=== PATIENT | male | born 1990 | race Caucasian/White ===

== ENCOUNTER 2016-08-14 23:18 | Emergency (ER) | payer OTHER ==
[~2016-08-14 23:18] MED LIST: DEPL PO; ENALAPRIL5 MG PO; LAMOTRIGINE200 MG PO; LEVOTHYROXIN0.088 MG GT; PULMICORT0.5 MG/21 IH; RISPERDAL M-TA0.5 MG PO; TOPIRAMATE50 MG PO
[2016-08-15 02:07] LABS: PLATELET COUNT 143 x10^3mcL (130-400); RED CELL DISTRIBUTION WIDTH 11.2 % (11.5-14.5)
[2016-08-15 02:54] LABS: CALCIUM 8.6 mg/dL (8.5-10.1); CARBON DIOXIDE 29.3 mmol/L (21-32); CHLORIDE SERUM 101 mmol/L (98-107); CREATININE SERUM 0.6 mg/dL (0.7-1.3); GFR1 > 60 mL/min; GLUCOSE SERUM 110 mg/dL (74-106); SODIUM SERUM 136 mmol/L (136-145)
[2016-08-15 02:58] LABS: ALKALINE PHOSPHATASE 115 U/L (46-116); ALT/SGPT 84 U/L (16-63); AST/SGOT 45 U/L (15-37); BILIRUBIN TOTAL 0.32 mg/dL (0.20-1.00); TOTAL PROTEIN, SERUM 7.5 g/dL (6.4-8.2)
[2016-08-15 02:59] LABS: ALBUMIN 3.3 g/dL (3.4-5.0)
[2016-08-15 03:33] VITALS: BP 88/64
== END 2016-08-15 03:33 | disposition home or self-care (01) ==
LOC: ED 23:18
PROVIDERS: Emergency Medicine
DX: R19.7 Diarrhea, unspecified (principal); R53.1 Weakness; R11.10 Vomiting, unspecified

== ENCOUNTER 2016-11-19 02:07 | Emergency (ER) | payer OTHER ==
[2016-11-19 04:01] VITALS: BP 120/57
== END 2016-11-19 04:01 | disposition left against medical advice (07) ==
LOC: ED 02:07
DX: Z53.21 Procedure and treatment not carried out due to patient leaving prior to being seen by health care provider (principal)

== ENCOUNTER 2018-06-05 19:22 | Inpatient (IN) | payer OTHER ==
[~2018-06-05] VITALS: Ht 154.9 cm; Wt 52.2 kg
[~2018-06-05 19:22] MED LIST changes: +LAMICTAL200 MG PO; -LAMOTRIGINE200 MG PO; -LEVOTHYROXIN0.088 MG GT; -RISPERDAL M-TA0.5 MG PO; +RISPERIDONE; +SYNTHROID0.088 MG; +TOPIRAMATE100 M1 GT; -TOPIRAMATE50 MG PO; +[UNRECOGNIZED DRUG - OTHER]
[2018-06-05 19:56] VITALS: Ht 154.9 cm; Wt 52.2 kg
--- NOTE | 2018-06-05 20:27 | NUR ---
PT CAME IN TODAY WITH FATHER WITH C/O DIARRHEA THAT STATED TODAY, PT HAS FEVER BUT FATHER STATES THAT PT DID NOT HAVE A FEVER AT HOME. FATHER STATES THAT YESTERDAY THE PT WAS SLEEPING MORE THAN NORMAL. PT HAS HISTORY OF MENTAL DELAY AND GASTRIC TUBE.
[2018-06-05 21:35] LABS: microscopic required? NO
[2018-06-05 21:41] LABS: urine erythrocyte NEGATIVE (NEGATIVE)
[2018-06-05 22:56] LABS: BASOPHIL % 0.1 % (0-2); PLATELET COUNT 165 x10^3mcL (130-400)
[2018-06-05 22:57] LABS: CALCIUM 7.6 mg/dL (8.5-10.1); CARBON DIOXIDE 24.9 mmol/L (21-32); CHLORIDE SERUM 102 mmol/L (98-107); CREATININE SERUM 0.8 mg/dL (0.7-1.3); GFR1 > 60 mL/min; GLUCOSE SERUM 111 mg/dL (74-106); POTASSIUM SERUM 3.7 mmol/L (3.5-5.1); RED CELL DISTRIBUTION WIDTH 11.1 % (11.5-14.5); SODIUM SERUM 135 mmol/L (136-145)
[2018-06-05 23:02] LABS: ALKALINE PHOSPHATASE 92 U/L (46-116); ALT/SGPT 52 U/L (16-63); AST/SGOT 29 U/L (15-37); BILIRUBIN TOTAL 0.47 mg/dL (0.20-1.00); TOTAL PROTEIN, SERUM 7.5 g/dL (6.4-8.2)
[2018-06-05 23:03] LABS: ALBUMIN 3.3 g/dL (3.4-5.0)
[2018-06-06] MEDS ORDERED: PANTOPRAZOLE SO40 M1 GT (00:41)
[2018-06-06 04:19] LABS: MAGNESIUM 2.2 mg/dL (1.8-2.4); PHOSPHOROUS 2.8 mg/dL (2.5-4.9)
[2018-06-06 04:23] LABS: AMPHETAMINE QUAL UR NONE DETECTED (See below)
[2018-06-06 04:25] LABS: CHOLESTEROL/HDL RATIO 2.6
[2018-06-06 07:48] LABS: CALCIUM 8.1 mg/dL (8.5-10.1); CARBON DIOXIDE 23.5 mmol/L (21-32); CHLORIDE SERUM 101 mmol/L (98-107); CREATININE SERUM 0.8 mg/dL (0.7-1.3); GFR1 > 60 mL/min; GLUCOSE SERUM 116 mg/dL (74-106); MAGNESIUM 1.9 mg/dL (1.8-2.4); PHOSPHOROUS 2.4 mg/dL (2.5-4.9); POTASSIUM SERUM 3.3 mmol/L (3.5-5.1); SODIUM SERUM 136 mmol/L (136-145)
--- NOTE | 2018-06-06 08:08 | NUR ---
RECEIVED PATIENT FROM ER. FATHER AT BED SIDE. PATIENT HAS DEVELOPMENT DELAY AND HX OF SEIZURE. SZ PRECAUTION IN PLACE. PATIENT NONVERBRAL, BUT ORIENTED TO FAMILY MEMBERS. PER FATER - PATIENT HAS FEVER, NAUSEA, VOMITING AND DIARRHEA SINCE YESTERDAY. TELE #37; ST; HR = 116. BREATHING SOUND CLEAR JOSE. O2 SAT 91% ON RA. O2 2L VIA N/C APPLIED. ABD FLAT/SOFT. BOWEL SOUND ACTIVE. GT TO L UPPER ABD, CLAMPTED. IVF OF NS 70CC/HR PER ORDER. PATIENT HAD DIARREA ON PAD, YELLOWISH BROWN. NO S/S OF PAIN. CALL LIGHT IN REACH.
--- NOTE | 2018-06-06 08:17 | NUR ---
REPORT GIVEN TO A[facility] VICKERS FOR CONTINUITY OF CARE.
[2018-06-06 08:40] LABS: BASOPHIL % 0 % (0-2); PLATELET COUNT 159 x10^3mcL (130-400)
[2018-06-06] MEDS ORDERED: ALBUTEROL SULFAT3 ML NEB (09:05)
[2018-06-06 10:45] VITALS: BP 104/69
--- NOTE | 2018-06-06 11:17 | NUR ---
Momo NUGENT STARTED.
--- NOTE | 2018-06-06 12:00 | NUR ---
DR. GEE CAME TO SEE PATIENT.
--- NOTE | 2018-06-06 12:15 | NUR ---
PATIENT HAD 2ND DIARRHEA. STOOL SPECIMEN COLLECTED AND SENT.
[2018-06-06 12:45] VITALS: BP 97/59
[2018-06-06 17:01] VITALS: BP 126/48
[2018-06-06 17:58] VITALS: BP 126/48
--- NOTE | 2018-06-06 18:32 | NUR ---
HAD DIARRHEA X5; VOID INCONT. HAD ENOUGH AMOUNT URINE OUTPUT. K - RIDER DONE. NO N/V. IVF OF NS 70CC/HR CONTINUE. FAMILY AT BED SIDE. ENDORSED CARE TO [facility] NURSE.
--- NOTE | 2018-06-06 20:13 | NUR ---
Awake and responsive. Non verbal. No respiratory distress noted on 02 2lpm via n/c. No cues of pain. No n/v. Gtube clamped. Will cont.to monitor. Call light within reach. Father at the bedside.
[2018-06-06 21:06] VITALS: BP 92/60
--- NOTE | 2018-06-07 04:19 | NUR ---
Afebrile. No significant change in condition noted. Still having loose stools. Incontinent, good pericare rendered. Restless at times. No cues of pain. Father at the bedside.
[2018-06-07 05:46] VITALS: BP 90/52
[2018-06-07 06:21] LABS: BASOPHIL % 0.3 % (0-2); RED CELL DISTRIBUTION WIDTH 12.3 % (11.5-14.5)
[2018-06-07 06:33] LABS: CALCIUM 8.1 mg/dL (8.5-10.1); CARBON DIOXIDE 26.1 mmol/L (21-32); CHLORIDE SERUM 108 mmol/L (98-107); CREATININE SERUM 0.7 mg/dL (0.7-1.3); GFR1 > 60 mL/min; GLUCOSE SERUM 84 mg/dL (74-106); POTASSIUM SERUM 3.1 mmol/L (3.5-5.1); SODIUM SERUM 141 mmol/L (136-145)
--- NOTE | 2018-06-07 07:00 | NUR ---
PATIENT AND REPORT RECEIVED FROM ELECTRO MECHANICAL ENGINEER ARGELIA DORADO.
[2018-06-07 07:44] LABS: PLATELET COUNT 126 x10^3mcL (130-400)
[2018-06-07 09:44] VITALS: BP 97/55
--- NOTE | 2018-06-07 14:18 | NUR ---
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, G-tube placement, bone marrow transplant Labs: (06/07) Na 141, K 3.1L, BG 84, BUN 11, Cr 0.7, A1c 5.1, WBC 7.4 H/H 13.3L/38L Meds: Levaquin, Lamictal, [place], Protonix, Risperidal, NSIV, Synthroid, Tylenol, Valproic acid, Zofran, Zosyn, Topamax Nutrition Support: G-Tube feeds at home, NPO at this time d/t sx consult Residuals: None documented I and O: (05/28) 1536/1100 +[id number] Ht: 61" (155 cm) Wt: 115# (52.2 kg) BMI: 21.7 (WNL) IBW: 112# %IBW: 103% UBW: 115-120# Age: 27 y/o male Food Allergies: NKFA Skin: Intact Tee: 19 Edema: None GI: Last BM x multiple episodes of loose stools per wastewater treatment plant instructor notes (06/07) Per H&P, pt. admitted with chief c/o N/V x 1 day, associated with increased lethargy comparative to baseline. CT abdomen/pelvis was conducted on 06/06/18 with findings that suggest diffuse ileus pattern with mild inflammatory thickening of proximal small bowel loops per provider notes. Pt. laying in bed with G-tube in place, but clamped for surgery consult. Non-verbal. Pt's father at bedside to provide assessment information. No GI distress at this time. Stated that pt. receives only boluses of Jevity 1.0 (240 mL cartons x 6 daily with FWF of approximately 250 mL shown in a water bottle) and will not accept any other TF administration method or formula. RD stated that a similar formulation, Jevity 1.2, is available in a 1L bottle for pump administration, but pt. father requested that he bring his own TF from home, as pt. has a history of intolerance when TF is changed, such as frequent loose stools and vomiting. Also suggested use of an elemental formula d/t ileus and despite explanation of the benefits and rationale for elemental formula for improved tolerance, pt. father adamantly states he will only utilize Jevity 1.0 from home. DIRECTOR MBA/providers are aware of pt's home TF regimen. Nutrition consult: TF Problem with: +loose stools, no c/o N/V/C at this time Problems with: Chewing: Y Swallowing: Y Current appetite: N/A Recent wt change: None recent %wt change: N/A Vitamin/Supplement use: None Special diet at home: G-Tube feeds at home Physical activity: Ambulatory at baseline Education: No diet education provided during visit. Estimated Nutritional Needs Based on body weight 52.2 kg: Energy: 1260-2659 kcal/d (25-27 kcal/kg-maintenance) Protein: 52-63 g/d (1.0-1.2 g/kg)-maintenance and preservation of lean body mass Fluid: 5450-6962 ml/d (1 ml/kcal) or per doctor Nutrition Diagnosis 1. Inadequate EN infusion r/t frequent pauses in TF administration AEB G-tube clamped and current rate meeting <75% estimated calorie and protein needs. Intervention/RD recommendations 1. When medically able, resume home tube feedings of Jevity 1.0 with 6 cartons of 240 mLx 24 Hrs. Administer as prescribed by PCP, which is Q3H. Provide prescribed FWF with feedings. 2. If in need for TF order, initiate Jevity 1.2 @ goal rate 45 mL/Hr with 100 mL FWF Q6H to provide 1296 kcal, 60 g protein, and 1271 mL total water. Regimen will meet 100% lower end of calorie needs and 95% upper end of estimated protein needs. Monitor/Evaluate Goal: TF intake at least 75% estimated needs Monitor: TF/TPN tolerance, Labs, GI function, weights F/U in 2-3 days as high risk (2/1-2/2)
[2018-06-07 17:02] VITALS: BP 90/49
--- NOTE | 2018-06-07 19:08 | NUR ---
PATIENT ENDORSED TO EDGE CUTTER FANI DORADO.
--- NOTE | 2018-06-07 19:55 | NUR ---
PT RECIEVED SLEEPING BUT EASILY AROUSABLE,PT WITH DEVELOPMENTAL DELAY,FATHER AT THE BEDSIDE,HL LT AC SITE PATENT AND INTACT,PT ON TELE MONITOR AND IN NSR NO ECTOPY OR CHEST PAIN AT THIS TIME,ABDO IS SOFT WITH ACTIVE BOWEL SOUNDS,KEPT CLEAN AND DRY TO TOUCH AND WILL CONTINUE TO MONITOR.
[2018-06-07 20:19] VITALS: BP 92/53
[2018-06-08 05:49] VITALS: BP 96/50
[2018-06-08 06:16] LABS: CALCIUM 8.4 mg/dL (8.5-10.1); CARBON DIOXIDE 24.8 mmol/L (21-32); CHLORIDE SERUM 107 mmol/L (98-107); CREATININE SERUM 0.7 mg/dL (0.7-1.3); GFR1 > 60 mL/min; GLUCOSE SERUM 92 mg/dL (74-106); SODIUM SERUM 138 mmol/L (136-145)
--- NOTE | 2018-06-08 06:22 | NUR ---
PT HAD A RESTING NIGHT AT [facility] AND WILL CONTINUE TO MONITOR.FAMILY AT THE BEDSIDE AND WILL CONTINUE TO MONITOR.
[2018-06-08 07:00] LABS: BASOPHIL % 0.3 % (0-2); PLATELET COUNT 131 x10^3mcL (130-400); RED CELL DISTRIBUTION WIDTH 12.7 % (11.5-14.5)
--- NOTE | 2018-06-08 07:07 | NUR ---
FATHER FEEDING THE SON VIA THE GT WITH JEVITY 1.0 AND PATIENT TOLERATING IT WELL AND WILL CONTINUE TO MONITOR.
--- NOTE | 2018-06-08 07:25 | NUR ---
PT FATHER WAS EXPLAINED WITH SPECIAL EDUCATION PARA PROFESSIONAL RTHER IS AN ORDER TO GIVE CONTINUOS FEEDING PATIENT MARILEE SAYRIAN WILL FEED THE SON HIMSELF THE DAME WAY HE HAS BEING DOING AT HOME
[2018-06-08] MEDS ORDERED: LEVOFLOXACIN500 M1 PO (08:46)
[2018-06-08] MEDS ORDERED: FLA500 PO (08:46)
[2018-06-08 08:54] VITALS: BP 96/50
--- NOTE | 2018-06-08 09:22 | NUR ---
PATIENT IN BED RESTING. FATHER AT BEDSIDE. PATIENT COOPERATIVE WITH ASSESSMENT. NO SIGNS OF DISCOMFORT, N/V. INFORMED PATIENT FATHER THAT PATIENT WOULD BE GOING HOME TODAY, AND OFFERED TO ANSWER ANY FURTHER QUESTIONS.
[2018-06-08 09:35] VITALS: BP 90/53
--- NOTE | 2018-06-08 09:55 | NUR ---
PATIENT RESTING IN BED, SLEEPING. NO SIGNS OF DISTRESS. GT MEDICATIONS GIVEN, TOLERATED WELL. PATIENT PLACED IN SEMI-FOWLERS POSITION. IV INFUSING LEVAQUIN, SITE IS CLEAN DRY INTACT. IVP PROTONIX GIVEN, TOLERATED WELL. DISCHARGE PACKET BEING PREPARED. PATIENT FATHER NOT PRESENT, WILL ENDORSE DISCHARGE INSTRUCTIONS TO HIM UPON ARRIVAL. BED IN LOWEST POSITION, CALL LIGHT IN REACH.
--- NOTE | 2018-06-08 12:12 | NUR ---
REMOVED TELE #[id number] GAVE TO ERWIN SALAZAR AT THIS TIME.
--- NOTE | 2018-06-08 12:15 | NUR ---
PATIENT IN ROOM WITH FATHER. NO SIGNS OF PAIN OR DISCOMFORT. REYNOLD ANG PRESENT FOR TRANSLATION ASSIST. EXPLAINED TO FATHER DISCHARGE INSTRUCTIONS, NEW MEDICATIONS FOR PATIENT, AND RESULTS OF STOOL CULTURE. TELEMETRY UNIT RETURNED TO ERWIN. IV CATHETER REMOVED, CATHETER INTACT, NO REDNESS, SWELLING, BRUISING AT SITE. DISCHARGE PACKET GIVEN TO FATHER. PATIENT AND FATHER ACCOMPANIED TO DISCHARGE OFFICE WITH ZACKARY HENDRICKSON
== END 2018-06-08 12:26 | disposition home or self-care (01) | DRG 872 ==
LOC: ED 19:22 → DU 06-06 02:46
PROVIDERS: Emergency Medicine; Family Medicine; ADMIT Internal Medicine
DX: A41.9 Sepsis, unspecified organism (principal); E44.1 Mild protein-calorie malnutrition; E87.1 Hypo-osmolality and hyponatremia; I42.9 Cardiomyopathy, unspecified; C95.91 Leukemia, unspecified, in remission; Z94.81 Bone marrow transplant status; J81.1 Chronic pulmonary edema; A04.9 Bacterial intestinal infection, unspecified; R13.10 Dysphagia, unspecified; R62.50 Unspecified lack of expected normal physiological development in childhood; F79 Unspecified intellectual disabilities; E87.6 Hypokalemia; E03.9 Hypothyroidism, unspecified; E78.00 Pure hypercholesterolemia, unspecified; G40.909 Epilepsy, unspecified, not intractable, without status epilepticus; Z68.21 Body mass index [BMI] 21.0-21.9, adult; Z98.2 Presence of cerebrospinal fluid drainage device; Z93.1 Gastrostomy status
CPT/HCPCS: 87046; 87046-59; 87804; C9113; J1956; J2060; J2405; J2543; J3480; J3490; J7030; J7613; J7626; Q0092; Q9966; Q9967

== ENCOUNTER 2019-06-19 09:16 | Emergency (ER) | payer OTHER ==
[~2019-06-19] VITALS: Ht 152.4 cm; Wt 51.7 kg
[~2019-06-19 09:16] MED LIST changes: +ALBUTEROL SULFAT3 ML NEB; +FLA500 PO; +LEVOFLOXACIN500 M1 PO; +PANTOPRAZOLE SO40 M1 GT
[2019-06-19 09:26] VITALS: Ht 152.4 cm; Wt 51.7 kg
[2019-06-19 10:11] LABS: CARBON DIOXIDE 25.6 mmol/L (21-32); CHLORIDE SERUM 99 mmol/L (98-107); CREATININE SERUM 0.6 mg/dL (0.7-1.3); GFR1 > 60 mL/min; GLUCOSE SERUM 110 mg/dL (74-106); POTASSIUM SERUM 4.4 mmol/L (3.5-5.1); SODIUM SERUM 133 mmol/L (136-145)
[2019-06-19 10:16] LABS: ALBUMIN 3.5 g/dL (3.4-5.0); ALKALINE PHOSPHATASE 97 U/L (46-116); ALT/SGPT 37 U/L (16-63); AST/SGOT 32 U/L (15-37); BILIRUBIN TOTAL 0.5 mg/dL (0.20-1.00); LIPASE 67 IU/L (73-393); TOTAL PROTEIN, SERUM 8.5 g/dL (6.4-8.2)
[2019-06-19 10:26] LABS: BASOPHIL % 0.1 % (0-2); PLATELET COUNT 182 x10^3mcL (130-400)
[2019-06-19 12:00] VITALS: BP 90/52
== END 2019-06-19 12:00 | disposition home or self-care (01) ==
LOC: ED 09:16
PROVIDERS: Emergency Medicine
DX: J18.9 Pneumonia, unspecified organism (principal); R11.10 Vomiting, unspecified; E03.9 Hypothyroidism, unspecified
CPT/HCPCS: 87804; J7030; Q0092; Q0162